=== PATIENT | female | born 1990 | race Caucasian/White ===

== ENCOUNTER 2025-02-10 09:41 | Emergency (ER) | payer OTHER ==
[~2025-02-10] VITALS: Ht 157.5 cm; Wt 87.7 kg
[2025-02-10 12:24] VITALS: BP 136/78; TEMP 97.4; O2SAT 98
== END 2025-02-10 12:22 | disposition home or self-care (01) ==
LOC: M ED 09:41
DX: R05.9 Cough, unspecified (principal); Z88.8 Allergy status to other drugs, medicaments and biological substances; Z88.5 Allergy status to narcotic agent